=== PATIENT | female | born 1970 | race African-American/Black ===

== ENCOUNTER 2016-12-20 18:24 | Emergency (ER) | payer OTHER ==
[~2016-12-20] VITALS: Ht 180.3 cm; Wt 113.4 kg
[~2016-12-20 18:24] MED LIST: LISI10TA2 PO; MELO-150 PO
[2016-12-20] MEDS ORDERED: KETOROLAC TROMETHAMINE 30 MG/ML SYRINGE. IV ONE (19:15)
[2016-12-20] MEDS ORDERED: IV NORMAL SALINE 1000ML BAG 1,000 ML IV ONE (19:15)
--- NOTE | 2016-12-20 19:16 | PHYS DOC ---
Past Medical History Past Medical History: Hypertension Past Surgical History: Hysterectomy, Other Additional Past Surgical Histo: ankle fx repair, wrist fx repair Alcohol Use: Occasionally Drug Use: None Adult General Chief Complaint Chief Complaint: HEADACHE HPI HPI Patient is a 46 year old female who drove herself to the ER complaining of a headache. She woke up with a headache this morning. She was fine last night when she went to bed. She has not been sick. She was not drinking alcohol. When she woke up with a headache, she took some Tylenol and went back to sleep for a while. She woke up again and still had the headache. She has had headaches like this before but usually they get better after taking Tylenol. It's in the back of her head on both sides and goes down into her neck. She has had some chills but no fever. No sore throat. No weakness on one side of her body. No earaches. Patient drove herself to the ED, states her son can calm if necessary. She does take antihypertensives and has been taking those as prescribed. PCP [facility] at Review [facility] Systems Review of Systems Constitutional: Has had some chills recently Eyes: Denies change in visual acuity, redness, or eye pain [] HENT: Denies nasal congestion or sore throat [] Respiratory: Denies cough or shortness of breath [] Cardiovascular: Denies chest pain GI: Denies abdominal pain, vomiting, bloody stools or diarrhea . She has had some nausea : Denies dysuria or hematuria [] Musculoskeletal: Denies back pain or joint pain [] Integument: Denies rash or skin lesions [] Neurologic: As in history of present illness Current Medications Current Medications Current Medications Medications (Trade) Dose Ordered Sig/Oliver Start Time Stop Time Status Last Admin Dose Admin Ketorolac Tromethamine 30 mg 30 mg 1X ONCE 12/20/16 19:15 12/20/16 19:16 DC 12/20/16 19:28 30 MG Sodium Chloride (Iv Sodium Chloride 0.9% 1000ml Bag) 1,000 ml @ 1,000 mls/hr 1X ONCE 12/20/16 19:15 12/20/16 20:14 DC 12/20/16 19:28 1,000 MLS/HR Allergies Allergies Allergies Coded Allergies Type Severity Reaction Last Updated Verified No Known Drug Allergies 12/20/16 No Physical Exam Physical Exam Constitutional: Well developed, well nourished, no acute distress, non-toxic appearance. Alert, mentating normally. HENT: Normocephalic, atraumatic, bilateral external ears normal, bilateral TMs normal, oropharynx moist, no oral exudates, tonsils normal, nose normal. Posterior scalp appears normal, no swelling, no redness or tenderness in the area of her occipital headache. Eyes: EOMI, conjunctiva normal, no discharge. [] Neck: Normal range of motion, supple, no stridor. Neck is entirely supple with no meningismus. Skin: Warm, dry, no erythema, no rash. [] Extremities: No tenderness, no cyanosis, no clubbing, ROM intact, no edema. [] Neurologic: Alert and oriented X 3, normal motor function, normal sensory function, no focal deficits noted. [] Current Patient Data Vital Signs Vital Signs Date Time Temp Pulse Resp B/P Pulse Ox O2 Delivery O2 Flow Rate FiO2 12/20/16 18:37 98.0 107 18 155/105 99 Room Air 98.0 EKG EKG [] Radiology/Procedures Radiology/Procedures [] Course & Med Decision Making Course & Med Decision Making Pertinent Labs and Imaging studies reviewed. (See chart for details) 46-year-old female who appears nontoxic presents with a occipital headache since waking up this morning, no neurologic complaints or findings. No fever. Her neck is entirely supple. I recommended that we start with some IV Toradol and she is agreeable to that plan. She has not had any NSAIDs at home. Rechecked patient after IV Toradol and IV fluids. Patient states her headache is gone. She feels much better. She is ready to go home. [] Dragon Disclaimer Dragon Disclaimer This electronic medical record was generated, in whole or in part, using a voice recognition dictation system. Departure Departure Impression: Primary Impression: Headache, occipital Disposition: 01 HOME, SELF-CARE Condition: IMPROVED Referrals: NON,STAFF (PCP) Patient Instructions: General Headache Without Cause, [id number] Additional Instructions: Drink plenty of fluids for the next 12-24 hours. If headache happens again, you might want to try ibuprofen, 400-600 mg (2 to 3 over the counter pills) which is similar to the medication I gave you here in the emergency department. Check your blood pressure a few times in the next week or 2. If the top number ( systolic) is above 140, see your doctor to discuss. TOBIAS ARMIOJ MD Dec 20, 2016 19:16
[2016-12-20 20:30] VITALS: BP 141/78
== END 2016-12-20 20:56 | disposition home or self-care (01) ==
LOC: ER 18:24
DX: R51 Headache (principal); I10 Essential (primary) hypertension; Z90.710 Acquired absence of both cervix and uterus; Z98.890 Other specified postprocedural states
CPT/HCPCS: 96361; 96374; 99284; J1885; J7030

== ENCOUNTER 2017-03-29 11:35 | Emergency (ER) | payer OTHER ==
[2017-03-29 12:43] VITALS: BP 106/76
--- NOTE | 2017-03-29 12:46 | RAD ---
Left lower extremity venous ultrasound, 03/29/2017 : History: Left lower extremity swelling Duplex evaluation including grayscale, color flow and spectral Doppler analysis was performed. The femoral and popliteal veins show no filling defects to suggest DVT. The visualized calf veins are unremarkable. There is a 4.9 x 1.4 x 3.2 cm cystic structure in the popliteal fossa compatible with a Fagan's cyst. It contains a few low level internal echoes. A small lymph node is noted medially in the left upper thigh. It measures 9 mm in short axis dimension and is therefore not considered to be pathologically enlarged. IMPRESSION: 1. There is no sonographic evidence of deep vein thrombosis in the left lower extremity. 2. Left popliteal cyst
--- NOTE | 2017-03-29 12:54 | PHYS DOC ---
Past Medical History Past Medical History: Hypertension Past Surgical History: Hysterectomy, Other Additional Past Surgical Histo: ankle fx repair, wrist fx repair Alcohol Use: Occasionally Drug Use: None Adult General Chief Complaint Chief Complaint: LOWER EXTREMITY SWELLING HPI HPI Patient is a 46 year old female with history of hypertension who presents with left calf pain and swelling that began a couple days ago. Patient denies any trauma. Denies any chest pain or shortness of breath. Denies any recent hospitalization. Denies any recent long air travel. Denies any history of DVTs. Denies any use of hormones. Review of Systems Review of Systems Constitutional: Denies fever or chills [] Eyes: Denies change in visual acuity, redness, or eye pain [] HENT: Denies nasal congestion or sore throat [] Respiratory: Denies cough or shortness of breath [] Cardiovascular: No additional information not addressed in HPI [] GI: Denies abdominal pain, nausea, vomiting, bloody stools or diarrhea [] : Denies dysuria or hematuria [] Musculoskeletal: Denies back pain or joint pain [] Integument: Left calf pain and swelling Neurologic: Denies headache, focal weakness or sensory changes [] Endocrine: Denies polyuria or polydipsia [] Allergies Allergies Allergies Coded Allergies Type Severity Reaction Last Updated Verified No Known Drug Allergies 12/20/16 No Physical Exam Physical Exam Constitutional: Well developed, well nourished, no acute distress, non-toxic appearance. [] HENT: Normocephalic, atraumatic, bilateral external ears normal, oropharynx moist, no oral exudates, nose normal. [] Eyes: PERRLA, EOMI, conjunctiva normal, no discharge. [] Neck: Normal range of motion, no tenderness, supple, no stridor. [] Cardiovascular:Heart rate regular rhythm, no murmur [] Lungs & Thorax: Bilateral breath sounds clear to auscultation [] Abdomen: Bowel sounds normal, soft, no tenderness, no masses, no pulsatile masses. [] Skin: Left medial calf palpable mass suspicious of a cyst. The area is not warm but very tender to touch. Negative Homans sign to the left lower extremity. +2 left pedal pulse. Back: No tenderness, no CVA tenderness. [] Extremities: No tenderness, no cyanosis, no clubbing, ROM intact, no edema. [] Neurologic: Alert and oriented X 3, normal motor function, normal sensory function, no focal deficits noted. [] Psychologic: Affect normal, judgement normal, mood normal. [] Current Patient Data Vital Signs Vital Signs Date Time Temp Pulse Resp B/P Pulse Ox O2 Delivery O2 Flow Rate FiO2 03/29/17 12:43 97.8 104 18 98 Room Air 97.8 EKG EKG [] Radiology/Procedures Radiology/Procedures []PROCEDURE: VENOUS LOWER EXTREMITY LEFT Left lower extremity venous ultrasound, 03/29/2017 : History: Left lower extremity swelling Duplex evaluation including grayscale, color flow and spectral Doppler analysis was performed. The femoral and popliteal veins show no filling defects to suggest DVT. The visualized calf veins are unremarkable. There is a 4.9 x 1.4 x 3.2 cm cystic structure in the popliteal fossa compatible with a Fagan's cyst. It contains a few low level internal echoes. A small lymph node is noted medially in the left upper thigh. It measures 9 mm in short axis dimension and is therefore not considered to be pathologically enlarged. IMPRESSION: 1. There is no sonographic evidence of deep vein thrombosis in the left lower extremity. 2. Left popliteal cyst DICTATED and SIGNED BY: CICI SELLERS MD DATE: 03/29/17 1241 CC: FARHAN PURI APRN; NON,STAFF; UNKNOWN PCP NAME ~ Course & Med Decision Making Course & Med Decision Making Pertinent Labs and Imaging studies reviewed. (See chart for details) Patient is in the ED with complaints of left calf pain and swelling that began a couple days ago. No known injury. Doppler of the left lower extremity interpreted by radiologist is noted for Fagan's cyst on the popliteal fosa. Patient was discharged with instructions to follow-up with an orthopedic doctor provided. Provided return precautions and discharged in stable condition. Dragon Disclaimer Dragon Disclaimer This electronic medical record was generated, in whole or in part, using a voice recognition dictation system. Departure Departure Impression: Primary Impression: Fagan's cyst of knee Disposition: HOME, SELF-CARE Condition: STABLE Referrals: UNKNOWN PCP NAME (PCP) SULEMA TRIPATHI MD Follow-up with the provided orthopedic doctor in one week Patient Instructions: Fagan's Cyst Additional Instructions: You were seen for a Fagan's cyst behind your knee. We recommend you follow-up with the primary care doctor as well as as the provided orthopedic doctor in the next 7 days. Take the prescribed pain medicines as needed. Come back to the ED if symptoms worsen. Scripts Tramadol Hcl (Ultram)50 Mg Tablet1 Tab PO Q6HRS #30 TAB Prov:FARHAN PURI APRN 03/29/17 Problem Qualifiers Primary Impression: Fagan's cyst of knee Laterality: left Qualified Code: M71.22 - Synovial cyst of popliteal space [ Fagan], left knee FARHAN PURI APRN March 29, 2017 12:54
[2017-03-29] MEDS ORDERED: TRAM-29 PO (13:00)
== END 2017-03-29 13:17 | disposition home or self-care (01) ==
LOC: ER 11:35
DX: M71.22 Synovial cyst of popliteal space [Baker], left knee (principal); I10 Essential (primary) hypertension; Z90.710 Acquired absence of both cervix and uterus
CPT/HCPCS: 93971; 99284-25

== ENCOUNTER 2019-07-23 19:54 | Emergency (ER) | payer BC, OTHER ==
[~2019-07-23 19:54] MED LIST changes: -MELO-150 PO; +MELO15TA23 PO; +TRAM-48 PO
== END 2019-07-23 20:53 | disposition left against medical advice (07) ==
LOC: ER 19:54
DX: M79.602 Pain in left arm (principal); Z53.21 Procedure and treatment not carried out due to patient leaving prior to being seen by health care provider